=== PATIENT | female | born 1980 | race Caucasian/White ===

== ENCOUNTER 2017-03-28 18:58 | Emergency (ER) | payer OTHER ==
--- NOTE | 2017-03-28 20:34 | UC ---
Back Pain HPI - HPI Summary HPI Summary: 3-4 DAYS OF NON RADIATING LOW BACK PAIN, THACKER AND FEVER. TMAX 102. NO COUGH, CONGESTION, ST OR N/V. IS ABOUT 4 WEEKS BY DATES. PT REPORTS 3 POSITIVE HOME TESTS THAT WERE CONFIRMED AT [facility]. HAS HAD URINARY FREQUENCY BUT NO DYSURIA. NO NUMBNESS, TINGLING OR SADDLE ANESTHESIA. - History of Current Complaint Chief Complaint: UCBackPain Stated Complaint: FEVER WITH KIDNEY COMPLAINT Time Seen by Provider: 03/28/17 20:32 Hx Obtained From: Patient Hx Last Menstrual Period: 12/08/14 Onset/Duration: Gradual Onset, Lasting Days, Still Present Severity Initially: Moderate Severity Currently: Moderate Pain Intensity: 4 Pain Scale Used: 0-10 Numeric Back Pain: Is Discrete @ - LOW BACK Character: Dull Aggravating: Movement Alleviating: Rest Associated Signs And Symptoms: Positive: Negative - Allergies/Home Medications Allergies/Adverse Reactions: Allergies Allergy/AdvReac Type Severity Reaction Status Date / Time Aspirin AdvReac easily Verified 03/28/17 19:29 bruised Home Medications: Home Medications Acetaminophen [Mapap] 1,000 mg PO PRN 03/28/17 [History] PMH/Surg Hx/FS Hx/Imm Hx - Additional Past Medical History Additional PMH: FIBROMYALGIA, CHRONIC BACK PAIN - Surgical History Surgical History: Yes Surgery Procedure, Year, and Place: umbilical hernia surgery x2eye lid muscle surgery - Family History Known Family History: Positive: Hypertension - Social History Alcohol Use: None Substance Use Type: None Smoking Status (MU): Current Every Day Smoker Type: Cigarettes Amount Used/How Often: 5 CIG/DAY Length of Time of Smoking/Using Tobacco: 17 years Have You Smoked in the Last Year: Yes Household Exposure Type: Cigarettes Review of Systems Constitutional: Fever ENT: Negative Respiratory: Negative Cardiovascular: Negative Genitourinary: Frequency Musculoskeletal: Myalgia All Other Systems Reviewed And Are Negative: Yes Physical Exam Triage Information Reviewed: Yes Appearance: Well-Appearing, No Pain Distress, Well-Nourished Vital Signs: Initial Vital Signs Temp 98.5 F 03/28/17 19:25 Pulse 87 03/28/17 19:25 Resp 16 03/28/17 19:25 BP 111/63 03/28/17 19:25 Pulse Ox 100 03/28/17 19:25 Vital Signs Reviewed: Yes Eyes: Positive: Conjunctiva Clear ENT: Positive: Hearing grossly normal, Pharynx normal, TMs normal Neck: Positive: Supple, Nontender, No Lymphadenopathy Respiratory Exam: Normal Cardiovascular Exam: Normal Abdomen Description: Positive: Nontender, Soft, CVA Tenderness (R) - EQUIVOCAL. Negative: CVA Tenderness (L), Distended, Guarding Musculoskeletal: Positive: No Edema Neurological: Positive: Alert Psychological: Positive: Age Appropriate Behavior Skin: Negative: rashes Diagnostics - Laboratory Diagnostic Studies Completed/Ordered: URINE DIP UNREMARKABLE Back Pain Course/Dx - Differential Dx/Diagnosis Provider Diagnoses: FEVER IN 1ST TRIMESTER Discharge - Discharge Plan Condition: Stable Disposition: HOME Patient Education Materials: Fever in Adults (ED) Referrals: Wendy Dwyer MD [Primary Care Provider] - If Needed Additional Instructions: NO SIGN OF BACTERIAL INFECTION ON EXAM TODAY. URINE TEST NEGATIVE FOR UTI. WILL CHECK BLOOD COUNT TODAY. REST, HYDRATE, TYLENOL NEEDED. NO NSAIDS IN . IF YOU ARE STILL RUNNING FEVER AND FEELING UNWELL IN 2 DAYS SEEK RE- EVALUATION WITH OB, HERE OR AT THE ER.
[2017-03-28 21:28] VITALS: BP 112/68
[2017-03-29 10:39] LABS: Hematocrit 38 % (35-47); Mean Corpuscular HGB Conc 34 g/dl (31-36); Mean Corpuscular Hemoglobin 31 pg (27-31); Mean Corpuscular Volume 92 fL (80-97); Mean Platelet Volume 11 um3 (7.4-10.4); Red Blood Count 4.16 10^6/ul (4.0-5.4); Red Cell Distribution Width 13 % (10.5-15); White Blood Count 9.4 10^3/ul (3.5-10.8)
== END 2017-03-28 21:15 | disposition home or self-care (01) ==
LOC: UCEAST 18:58
DX: O26.891 Other specified pregnancy related conditions, first trimester (principal); Z3A.01 Less than 8 weeks gestation of pregnancy; R50.9 Fever, unspecified; O99.331 Smoking (tobacco) complicating pregnancy, first trimester
CPT/HCPCS: 36415; 81003; 85025; 99212; G0463

== ENCOUNTER 2017-11-14 19:46 | Inpatient (IN) | payer OTHER ==
[2017-11-14 22:32] LABS: Hematocrit 33 % (35-47); Hemoglobin 11.6 g/dl (12.0-16.0); Mean Corpuscular HGB Conc 35 g/dl (31-36); Mean Corpuscular Hemoglobin 33 pg (27-31); Mean Corpuscular Volume 94 fL (80-97); Mean Platelet Volume 11 um3 (7.4-10.4); Platelet Count 122 10^3/ul (150-450); Red Blood Count 3.55 10^6/ul (4.0-5.4); Red Cell Distribution Width 14 % (10.5-15); White Blood Count 10.5 10^3/ul (3.5-10.8)
[2017-11-14] MEDS ORDERED: Oxytocin in LR* 20 UNITS/1,000 ML BAG IVPB ONE (22:57)
[2017-11-14] MEDS ORDERED: Oxytocin in LR* 20 UNITS/1,000 ML BAG IVPB SCH (23:00)
[2017-11-14 23:03] LABS: ABS Basophils 0.1 10^3/ul (0-0.2); ABS Eosinophils 0.1 10^3/ul (0-0.6); ABS Lymphocytes 2.2 10^3/ul (1.0-4.8); ABS Monocytes 0.6 10^3/ul (0-0.8); ABS Neutrophils 7.6 10^3/ul (1.5-7.7); ABS Nucleated RBC 0 10^3/ul; Eosinophil % 1.1 % (0-6); Lymphocyte % 20.4 % (25-47); Nucleated Red Blood Cells % 0.2
[2017-11-15] MEDS ORDERED: fentaNYL* 50 MCG/ML 2 ML VIAL (100 MCG VIAL) ONE (04:11)
[2017-11-15] MEDS ORDERED: Glycerin ADULT SUPP PR PRN (04:24)
[2017-11-15] MEDS ORDERED: Acetaminophen TAB* 325 MG PO PRN (04:24)
[2017-11-15] MEDS ORDERED: Dibucaine 1% 28.35 GM TUBE PR PRN (04:24)
[2017-11-15] MEDS ORDERED: Witch Hazel PAD* JAR TOPICAL PRN (04:24)
[2017-11-15] MEDS ORDERED: ceFOXitin 2 GM IVPREMIX* 2 GM/50 ML BAG IVPB ONE (04:27)
[2017-11-15] MEDS ORDERED: fentaNYL* 50 MCG/ML 2 ML VIAL (100 MCG VIAL) IV ONE (04:27)
[2017-11-15] MEDS ORDERED: Oxytocin in LR* 20 UNITS/1,000 ML BAG IVPB SCH (05:00)
[2017-11-15] MEDS ORDERED: Simethicone TAB* 80 MG TAB.CHEW PO SCH (08:30)
[2017-11-15] MEDS: Docusate CAP* 100 MG PO SCH ×3 (08:55→21:21)
[2017-11-15] MEDS: Ibuprofen TAB* 600 MG PO PRN ×3 (08:56→21:22)
[2017-11-16 06:50] LABS: ABS Basophils 0 10^3/ul (0-0.2); ABS Eosinophils 0.1 10^3/ul (0-0.6); ABS Lymphocytes 2.6 10^3/ul (1.0-4.8); ABS Monocytes 0.6 10^3/ul (0-0.8); ABS Neutrophils 7.5 10^3/ul (1.5-7.7); ABS Nucleated RBC 0 10^3/ul; Hematocrit 22 % (35-47); Hemoglobin 7.7 g/dl (12.0-16.0); Lymphocyte % 24.1 % (25-47); Mean Corpuscular HGB Conc 35 g/dl (31-36); Mean Corpuscular Hemoglobin 33 pg (27-31); Mean Corpuscular Volume 95 fL (80-97); Mean Platelet Volume 11 um3 (7.4-10.4); Nucleated Red Blood Cells % 0.1; Platelet Count 88 10^3/ul (150-450); Red Blood Count 2.33 10^6/ul (4.0-5.4); Red Cell Distribution Width 14 % (10.5-15); White Blood Count 10.9 10^3/ul (3.5-10.8)
[2017-11-16] MEDS: Ibuprofen TAB* 600 MG PO PRN (07:25)
[2017-11-16 08:28] VITALS: BP 131/91
[2017-11-16] MEDS: Docusate CAP* 100 MG PO SCH (08:50)
[2017-11-16] MEDS ORDERED: Ferrous Gluconate TAB* 324 MG TAB PO SCH (09:00)
== END 2017-11-16 11:55 | disposition home or self-care (01) | DRG 541 ==
LOC: MCHOBOUT 19:46 → MCHOB 20:59
PROVIDERS: ADMIT Obstetrics & Gynecology; ATTEND Obstetrics & Gynecology
PROC: 4A1HX4Z Monitoring of Products of Conception, Cardiac Electrical Activity, External Approach (ICD-10-PCS; principal; 2017-11-14)
PROC: 10E0XZZ Delivery of Products of Conception, External Approach (ICD-10-PCS; 2017-11-14)
PROC: 10D17Z9 Manual Extraction of Products of Conception, Retained, Via Natural or Artificial Opening (ICD-10-PCS; 2017-11-14)
DX: O62.3 Precipitate labor (principal); D69.6 Thrombocytopenia, unspecified; O99.12 Other diseases of the blood and blood-forming organs and certain disorders involving the immune mechanism complicating childbirth; O72.0 Third-stage hemorrhage; O69.81X0 Labor and delivery complicated by cord around neck, without compression, not applicable or unspecified; O99.334 Smoking (tobacco) complicating childbirth; F17.200 Nicotine dependence, unspecified, uncomplicated; Z88.8 Allergy status to other drugs, medicaments and biological substances; Z3A.38 38 weeks gestation of pregnancy; Z37.0 Single live birth; O90.81 Anemia of the puerperium
CPT/HCPCS: 36415; 84112; 85025; 85060; 86850; 86900; 86901; 88307; A9270-GY; J0694; J3010

== ENCOUNTER 2018-01-18 09:46 | Day surgery (SDC) | payer OTHER ==
[~2018-01-18 09:46] MED LIST: Lidocaine 2% PF * 5 ML VIAL ONE; Midazolam* 1 MG/ML 2 ML VIAL (2 MG) ONE; Propofol* 500 MG/50 ML BTL ONE; fentaNYL* 50 MCG/ML 2 ML VIAL (100 MCG VIAL) ONE
[2018-01-18] MEDS ORDERED: ceFAZolin 2 GM PREMIX (*) 2 GM/50 ML BAG IVPB ONE (09:54)
[2018-01-18] MEDS ORDERED: Buffered Lidocaine 0.9% SYRIN* 5 ML/SYR SYRINGE ONE (09:54)
[2018-01-18 10:23] LABS: ABS Basophils 0.1 10^3/ul (0-0.2); ABS Eosinophils 0.1 10^3/ul (0-0.6); ABS Lymphocytes 2.2 10^3/ul (1.0-4.8); ABS Monocytes 0.6 10^3/ul (0-0.8); ABS Neutrophils 5.6 10^3/ul (1.5-7.7); ABS Nucleated RBC 0 10^3/ul; Eosinophil % 1.6 % (0-6); Hematocrit 37 % (35-47); Hemoglobin 12.5 g/dl (12.0-16.0); Lymphocyte % 25.4 % (25-47); Mean Corpuscular HGB Conc 34 g/dl (31-36); Mean Corpuscular Hemoglobin 30 pg (27-31); Mean Corpuscular Volume 88 fL (80-97); Mean Platelet Volume 9.6 um3 (7.4-10.4); Nucleated Red Blood Cells % 0; Platelet Count 170 10^3/ul (150-450); Red Blood Count 4.22 10^6/ul (4.0-5.4); Red Cell Distribution Width 15 % (10.5-15); White Blood Count 8.6 10^3/ul (3.5-10.8)
[2018-01-18] MEDS ORDERED: Ondansetron INJ* 2 MG/ML VIAL IV PRN (10:53)
[2018-01-18] MEDS ORDERED: HYDROmorphone INJ* 1 MG/ML CARPUJECT SYRINGE IV PRN (10:53)
[2018-01-18] MEDS ORDERED: fentaNYL* 50 MCG/ML 2 ML VIAL (100 MCG VIAL) IV PRN (10:53)
[2018-01-18] MEDS ORDERED: Naloxone* 0.4 MG/ML 1 ML VIAL IV PRN (10:53)
[2018-01-18] MEDS ORDERED: oxyCODONE/Acetamin 5/325 MG* TAB PO PRN (10:53)
[2018-01-18] MEDS ORDERED: PROCHLORPERAZINE INJ 5 MG/ML 2 ML VIAL IV PRN (10:53)
[2018-01-18] MEDS ORDERED: oxyCODONE TAB* 5 MG TAB PO PRN (10:53)
[2018-01-18] MEDS ORDERED: Scopolamine 1.5 mg* PATCH TRANSDERM PRN (10:53)
[2018-01-18] MEDS ORDERED: Acetaminophen TAB* 325 MG PO PRN (10:53)
[2018-01-18] MEDS ORDERED: Dexamethasone IV* 4 MG/ML 1 ML (4 MG) ONE (10:54)
[2018-01-18] MEDS ORDERED: Ketorolac INJ* 30 MG/ML 1 ML VIAL ONE (10:55)
[2018-01-18] MEDS ORDERED: Ondansetron INJ* 2 MG/ML VIAL ONE (10:55)
[2018-01-18 12:05] VITALS: BP 136/79
--- NOTE | 2018-01-18 22:03 | OP ---
OPERATIVE REPORT: DATE OF OPERATION: 01/18/18 - [facility] DATE OF : 84 SURGEON: Shirlene Lopes MD ANESTHESIOLOGIST: Dr. Duran. ANESTHESIA: General endotracheal. PRE-OP DIAGNOSES: Two months with persistent bleeding and retained placental tissue. POST-OP DIAGNOSES: Two months with persistent bleeding and retained placental tissue. PROCEDURE PERFORMED: Suction dilation and curettage with ultrasound guidance. ESTIMATED BLOOD LOSS: 30 cc. IV FLUIDS: 700 cc lactated Ringer's. URINE OUTPUT: 200 cc. MATERIALS TO LAB: Placental tissue. INDICATION: This patient was a 37-year-old 3, para 3, who presented to the office about 2 months , reporting persistent on and off light and heavy bleeding since delivery. The patient had not returned for a examination. On ultrasound, there was an approximately 2 x 3 cm area of echogenicity within the endometrial cavity, which was considered likely to be some retained placental tissue. Of note, the patient's delivery was complicated by difficult delivery of the placenta including a need for manual extraction. She was extensively counseled for the procedure and consent was signed. FINDINGS: Small amount of placental tissue and part of that was somewhat adherent to the posterior uterine wall. Ultrasound was used for guidance and all significant tissue appeared to be gone after the procedure was completed. COMPLICATIONS: None. DESCRIPTION OF PROCEDURE: The risks, benefits, and alternatives were described to the patient, and informed consent was obtained. The patient was taken to the operating room with IV running, where general anesthesia was induced and found to be adequate. The patient was prepped and draped in the normal sterile fashion in the high lithotomy position and Zachary stirrups. A time-out was performed. The bladder was emptied. A bivalve speculum was placed in the vagina and a single- tooth tenaculum was placed in the anterior cervix. The cervix was then easily dilated to a size 30 Hanks dilator. At that time, an ultrasound was performed and the echogenic material was easily visualized. A size 10 curved suction curette was advanced through the cervix and into the fundus and visualized on the ultrasound. Suction was activated and a small amount of tissue was obtained and removed with 2 passes. On ultrasound, a tiny area appeared to still be present. A curettage with a medium banjo curette was then performed. The anterior uterus felt smooth, but the posterior aspect was noted to have somewhat adherent tissue present. With some gentle curetting, this appeared to be satisfactorily removed. The tissue did not seem to be somewhat calcified once it was removed. At that time, the procedure was complete. The tenaculum was removed from the cervix and there was good hemostasis present. The speculum was removed and the patient was returned to the supine position. The patient tolerated the procedure well. Sponge, lap, and needle counts were correct x2. [id number]/[facility] #: [id number] [facility]
[2018-01-21] MEDS ORDERED: Scopolamine PATCH Remove* 1 NOTE MISC PATCH OFF ONE (10:54)
== END 2018-01-18 12:39 | disposition home or self-care (01) ==
LOC: OR 09:46
PROVIDERS: ATTEND Obstetrics & Gynecology
DX: O72.2 Delayed and secondary postpartum hemorrhage (principal); Z72.0 Tobacco use; F41.8 Other specified anxiety disorders; K58.9 Irritable bowel syndrome, unspecified; M79.7 Fibromyalgia; K44.9 Diaphragmatic hernia without obstruction or gangrene
CPT/HCPCS: 36415; 85025; 86850; 86900; 86901; 88305; J0690; J1100; J1885; J2250; J2405; J2704; J3010

== ENCOUNTER → 2019-03-14 05:51 | Day surgery (SDC) | payer OTHER ==
[~2019-03-14 05:51] MED LIST changes: +Buffered Lidocaine 1% SYRIN* 1 ML/SYRINGE INTRADERM ONE; +DOXYcycline IV* 100 MG in NS 0.9% 250 ML* 250 ML IVPB ONE; +DOXYcycline IV* 200 MG in NS 0.9% 250 ML* 250 ML IVPB ONE; +Dexamethasone IV* 4 MG/ML 1 ML (4 MG) IV SLOW PU ONE; +Dexamethasone IV* 4 MG/ML 1 ML (4 MG) ONE; +DiMENhydriNATE IV* 50 MG/ML VIAL IV PUSH PRN; +EPHEDrine (Pressors)* 50 MG/ML VIAL ONE; +Famotidine IV* 10 MG/ML 2 ML (20 mg) IV ONE; +Famotidine IV* 10 MG/ML 2 ML (20 mg) ONE; +Glycopyrrolate IV* 0.2 MG/ML 1 ML VIAL ONE; +Lactated Ringers 1000 ML Bag* 1,000 ML IV SCH; +Levalbuterol 0.63MG/3ML NEB* UNIT OF USE INH ONE; -Midazolam* 1 MG/ML 2 ML VIAL (2 MG) ONE; +Midazolam* 1 MG/ML 5 ML VIAL (5 MG) ONE; +Naloxone* 0.4 MG/ML 1 ML VIAL IV PRN; +Ondansetron INJ* 2 MG/ML VIAL IV PRN; +Ondansetron INJ* 2 MG/ML VIAL ONE; +Propofol* 10 MG/ML 20 ML BTL ONE; -Propofol* 500 MG/50 ML BTL ONE; +fentaNYL* 50 MCG/ML 2 ML VIAL (100 MCG VIAL) IV PRN; -fentaNYL* 50 MCG/ML 2 ML VIAL (100 MCG VIAL) ONE; +fentaNYL* 50 MCG/ML 5 ML VIAL (250 MCG VIAL) ONE; +medroxyPROGESTERone ACETATE (DEPOT)* 150 MG/ML 1 ML IM ONE; +oxyCODONE/Acetamin 5/325 MG* TAB PO PRN
[2019-03-14 08:47] VITALS: BP 132/84
--- NOTE | 2019-03-14 22:23 | OP ---
DATE OF OPERATION: 03/14/19 [facility] DATE OF : 84 SURGEON: Shirlene Lopes MD ANESTHESIOLOGIST: Dr. Santos. ANESTHESIA: General. PRE-OP DIAGNOSIS: Retained placenta. POST-OP DIAGNOSIS: Retained placenta. OPERATIVE PROCEDURE: Suction dilation and curettage with ultrasound guidance. ESTIMATED BLOOD LOSS: 300 cc. URINE OUTPUT: 300 cc. IV FLUIDS: 1200 cc lactated Ringer's. MATERIALS TO LAB: Retained placental tissue. INDICATIONS: This patient is a 38-year-old 4, para 4, seen in the office yesterday about 6 weeks post . The patient reported having intermittent episodes of moderate to heavy bleeding, which had not resolved. Ultrasound noted a moderate amount of complex tissue within the uterus including some denser tissue that appeared consistent with retained tissue. Of note, the patient had also had retained placental tissue after her previous delivery requiring surgical removal. The patient was extensively counseled and consent was signed for a suction dilation and curettage. FINDINGS: Moderate amount of very adherent tissue within the uterus, which with ultrasound guidance was able to be removed. COMPLICATIONS: None. DESCRIPTION OF PROCEDURE: The risks, benefits and alternatives were described to the patient and informed consent was obtained. The patient was taken to the operating room with IV running where general anesthesia was induced and found to be adequate. The patient was prepped and draped in the normal sterile in a high lithotomy position and Zachary stirrups. The time-out was performed. The bladder was emptied. An ultrasound was performed and the retained tissue was visible. A bivalved speculum was placed in the vagina and a single-tooth tenaculum was placed on the anterior cervix. The cervix was then gently dilated using Hanks dilators without difficulty. At that time, a curved size 10 suction curette was advanced through the cervix and into the uterine cavity without difficulty. Suction was activated and some clot, blood, and tissue were obtained. Ultrasound was then repeated and there was still some tissue visible. The curette was reintroduced and with ultrasound guidance, the tissue was able to be evacuated. At that time, there was no additional tissue apparently remaining. A gentle curettage with a curette was performed and no additional tissue was obtained. There was moderate bleeding during this procedure. The patient was given IM Methergine at the end of the procedure. Bimanual massage was performed and after that there was minimal bleeding present. The tenaculum was then removed from the cervix and there was good hemostasis present. The speculum was removed and the patient was returned to the supine. The patient tolerated the procedure well. Sponge, lap, and needle counts were correct x2. [id number]/[facility] #: [id number] [facility]
== END | disposition home or self-care (01) ==
LOC: OR 05:51
PROVIDERS: ATTEND Obstetrics & Gynecology
DX: O72.2 Delayed and secondary postpartum hemorrhage (principal); Z72.0 Tobacco use; M79.7 Fibromyalgia; D69.6 Thrombocytopenia, unspecified
CPT/HCPCS: 88305; J1050; J1100; J2250; J2405; J2704; J3010

== ENCOUNTER 2019-07-31 15:35 | Emergency (ER) | payer OTHER ==
--- NOTE | 2019-07-31 17:15 | UC ---
Skin Complaint HPI - HPI Summary HPI Summary: 38 yo with 4 week hx of arthralgias in hands with associated swelling, and diffuse pains in the hips, knees, shoulders. No fever. Describes easy brusing with small ecchymoses of the forearms--2 are visible and about the size of a jamil. Currently alternating acetaminophen 1000mg up to 4 times per day with 400mg ibuprofen 4 times per day. Last night had 2 shots of peach whiskey for pain relief along with a few hits of marijuana. Rash on forearms x 2 days. Has right neck pain which radiates to the right occipital area and makes her head hurt. No hx of tick bite. - History of Current Complaint Chief Complaint: UCGeneralIllness Time Seen by Provider: 07/31/19 17:08 Stated Complaint: RASH Hx Obtained From: Patient Hx Last Menstrual Period: on depo Onset/Duration: Gradual Onset, Lasting Weeks - 4, Worse Since - 2 days ago. Skin Exposure Onset/Duration: Days Ago - progressive rash Pain Intensity: 9 - Allergy/Home Medications Allergies/Adverse Reactions: Allergies Allergy/AdvReac Type Severity Reaction Status Date / Time aspirin Allergy easily Verified 07/31/19 16:04 bruised Home Medications: Home Medications Acetaminophen TAB* [Tylenol TAB*] 1,000 mg PO Q6HR PRN 07/31/19 [History] Ibuprofen [Advil] 400 mg PO Q6H PRN 07/31/19 [History Confirmed 07/31/19] PMH/Surg Hx/FS Hx/Imm Hx - Surgical History Surgical History: Yes Surgery Procedure, Year, and Place: Umbilical hernia surgery x2. Eye lid muscle surgery. LUMP REMOVED FROM LEFT MIDDLE FINGER. IRRIGATION AND DEBRIDEMENT- LEFT HAND. LEEP Procedure. Retained Placenta- D&C x2 - Family History Known Family History: Positive: Hypertension - Social History Alcohol Use: Occasionally Substance Use Type: Marijuana Smoking Status (MU): Heavy Every Day Tobacco Smoker Type: Cigarettes Amount Used/How Often: 1/2 PPD X 20 YEARS Length of Time of Smoking/Using Tobacco: 17 years Have You Smoked in the Last Year: Yes Household Exposure Type: Cigarettes - Immunization History Most Recent Influenza Vaccination: 08/01/18 Most Recent Pneumonia Vaccination: none Review of Systems All Other Systems Reviewed And Are Negative: Yes Constitutional: Positive: Negative, Fatigue. Negative: Fever Skin: Positive: Rash, Bruising Eyes: Positive: Negative ENT: Positive: Negative Respiratory: Positive: Negative. Negative: Cough Cardiovascular: Positive: Negative. Negative: Chest Pain Gastrointestinal: Positive: Negative Genitourinary: Negative: Dysuria Motor: Positive: Negative Neurovascular: Positive: Negative Musculoskeletal: Positive: Arthralgia Neurological: Positive: Negative Psychological: Positive: Negative Is Patient Immunocompromised?: No Physical Exam Triage Information Reviewed: Yes Appearance: Well-Appearing Vital Signs: Initial Vital Signs Temp 98.8 F 07/31/19 16:05 Pulse 73 07/31/19 16:05 Resp 18 07/31/19 16:05 BP 133/88 07/31/19 16:05 Pulse Ox 100 07/31/19 16:05 Vital Signs Reviewed: Yes Eyes: Positive: Conjunctiva Clear ENT: Positive: Pharynx normal, TMs normal Neck: Positive: Supple, Nontender, No Lymphadenopathy Respiratory: Positive: Lungs clear, Normal breath sounds Cardiovascular: Positive: RRR, No Murmur, Pulses Normal Abdomen Description: Positive: Nontender, No Organomegaly, Soft Musculoskeletal Exam: Other - mild swelling over MCP joints of right hand with diffuse tenderness. Musculoskeletal: Positive: Strength Intact, ROM Intact - full rom hips and knees , with reported pain. Wrists with full rom and no swelling. Cervical spine with decreased flexion and extension due to pain. Neurological: Positive: Alert, Muscle Tone Normal Skin Exam: Other - 2 small ecchymoses on forearms. Initially had erythematous rash on legs, when re-evaluated this had disappeared. Pruritic papules both forearms and antecubital fossa without robb holes. Nil in web spaces. Diagnostics - Radiology No standard instances Radiology Interpretation Completed By: Radiologist - Dr Vaz: no findings right hand Course/Dx - Course Course Of Treatment: no specific findings, labs drawn with follow up to her physician primary care sports medicine. Continue pain control with ibuprofen. - Differential Diagnoses - Skin Complaint Differential Diagnoses: Scabies, Viral Exanthem, Other - rheumatoud arthritis, lupus. - Diagnoses Provider Diagnosis: Pain, joint, multiple sites Discharge ED - Sign-Out/Discharge Documenting (check all that apply): Patient Departure All imaging exams completed and their final reports reviewed: Yes - Discharge Plan Condition: Stable Disposition: HOME Patient Education Materials: Musculoskeletal Pain (ED) Referrals: Iain WALTON,Gurinder Puentes [Primary Care Provider] - Additional Instructions: Please arrange a visit with Dr. Timmons to review labs within several days: follow up is very important because no diagnosis was made here based on your presentation. Continue ibuprofen 600m up to 4 times per day and acetaminophen 100mg up to 3 times per day. Do not combine with use of alcohol. - Billing Disposition and Condition Condition: STABLE Disposition: Home
[2019-07-31 18:11] VITALS: BP 131/82
[2019-08-01 13:01] LABS: ABS Basophils 0.1 10^3/ul (0-0.2); ABS Eosinophils 0.2 10^3/ul (0-0.6); ABS Lymphocytes 2.3 10^3/ul (1.0-4.8); ABS Monocytes 0.6 10^3/ul (0-0.8); ABS Neutrophils 4.1 10^3/ul (1.5-7.7); Eosinophil % 3.3 %; Hematocrit 37 % (35-47); Hemoglobin 12.4 g/dL (12.0-16.0); Lymphocyte % 31.6 %; Mean Corpuscular HGB Conc 33 g/dL (31-36); Mean Corpuscular Hemoglobin 27 pg (27-31); Mean Corpuscular Volume 83 fL (80-97); Mean Platelet Volume 9.9 fL (7.4-10.4); Nucleated Red Blood Cells % 0.2; Platelet Count 201 10^3/uL (150-450); Red Blood Count 4.52 10^6 /uL (3.70-4.87); Red Cell Distribution Width 18 % (10-15); White Blood Count 7.2 10^3/uL (3.5-10.8)
[2019-08-01 13:06] LABS: Albumin 4.5 g/dL (3.2-5.2); Anion Gap 7 mmol/L (2-11); CO2 Carbon Dioxide 25 mmol/L (22-32); Calcium 10.1 mg/dL (8.6-10.3); Chloride 107 mmol/L (101-111); Potassium 4.2 mmol/L (3.5-5.0); Sodium 139 mmol/L (135-145)
[2019-08-01 13:12] LABS: ALT 17 U/L (7-52); AST 15 U/L (13-39); Albumin/Globulin Ratio 1.8 (1-3); Alkaline Phosphatase 45 U/L (34-104); BUN/Creatinine Ratio 14.3 (8-20); Blood Urea Nitrogen 11 mg/dL (6-24); C Reactive Protein 3.48 mg/L (<8.01); EGFR African American 102.6 (>60); EGFR Non-African American 84.8 (>60); Globulin 2.5 g/dL (2-4); Glucose 92 mg/dL (70-100)
[2019-08-01 13:14] LABS: Rheumatoid Factor < 10 IU/mL (<15)
== END 2019-07-31 18:26 | disposition home or self-care (01) ==
LOC: UCEAST 15:35
DX: M25.511 Pain in right shoulder (principal); M25.512 Pain in left shoulder; M25.551 Pain in right hip; M25.552 Pain in left hip; M25.561 Pain in right knee; M25.562 Pain in left knee; S50.12XA Contusion of left forearm, initial encounter; S50.11XA Contusion of right forearm, initial encounter; M25.452 Effusion, left hip; M25.451 Effusion, right hip; M25.462 Effusion, left knee; M25.461 Effusion, right knee; M25.411 Effusion, right shoulder; M25.412 Effusion, left shoulder; R21 Rash and other nonspecific skin eruption; F17.210 Nicotine dependence, cigarettes, uncomplicated; Z88.6 Allergy status to analgesic agent; X58.XXXA Exposure to other specified factors, initial encounter; Y92.9 Unspecified place or not applicable
CPT/HCPCS: 36415; 80053; 85025; 86038; 86140; 86431; 99211; G0463

== ENCOUNTER 2019-09-11 20:22 | Emergency (ER) | payer OTHER ==
[2019-09-11 20:54] LABS: ABS Basophils 0.1 10^3/ul (0-0.2); ABS Eosinophils 0.2 10^3/ul (0-0.6); ABS Monocytes 0.4 10^3/ul (0-0.8); Eosinophil % 3.1 %; Hematocrit 35 % (35-47); Hemoglobin 12.1 g/dL (12.0-16.0); Mean Corpuscular HGB Conc 34 g/dL (31-36); Mean Corpuscular Hemoglobin 29 pg (27-31); Mean Corpuscular Volume 85 fL (80-97); Mean Platelet Volume 7.9 fL (7.4-10.4); Nucleated Red Blood Cells % 0.1; Platelet Count 282 10^3/uL (150-450); Red Blood Count 4.14 10^6 /uL (3.70-4.87); Red Cell Distribution Width 17 % (10-15); White Blood Count 7.6 10^3/uL (3.5-10.8)
[2019-09-11 21:03] LABS: INR 0.9 (0.82-1.09)
[2019-09-11 21:11] LABS: Albumin 4.2 g/dL (3.2-5.2); Albumin/Globulin Ratio 1.6 (1-3); BUN/Creatinine Ratio 17.3 (8-20); Calcium 8.7 mg/dL (8.6-10.3); EGFR African American 96.8 (>60); Globulin 2.7 g/dL (2-4); Potassium 3.7 mmol/L (3.5-5.0); Total Bilirubin 0.2 mg/dL (0.2-1.0); Total Protein 6.9 g/dL (6.4-8.9)
[2019-09-11 22:52] VITALS: BP 149/87
== END 2019-09-11 23:17 | disposition left against medical advice (07) ==
LOC: ED 20:22
DX: Z53.21 Procedure and treatment not carried out due to patient leaving prior to being seen by health care provider (principal); R07.9 Chest pain, unspecified
CPT/HCPCS: 36415; 80053; 84484; 85025; 85610; 93005; 99281